=== PATIENT | female | born 1985 | race Two or more races ===

== ENCOUNTER 2025-04-27 14:13 | Outpatient (CLI) | payer OTHER ==
[~2025-04-27 14:13] MED LIST: NON
== END 2025-04-27 14:16 | disposition home or self-care (01) ==
LOC: SONOGRAMA 14:13
PROVIDERS: ATTEND Pathology Anatomic Pathology & Clinical Pathology
DX: D34 Benign neoplasm of thyroid gland (principal); E07.89 Other specified disorders of thyroid; E04.1 Nontoxic single thyroid nodule